=== PATIENT | female | born 1985 | race Caucasian/White ===

== ENCOUNTER 2019-08-09 05:30 | Inpatient (IN) | payer BC ==
[2019-08-09] MEDS ORDERED: Lidocaine 1% (PF) 30 ML VIAL SC PRN (05:42)
[2019-08-09] MEDS ORDERED: Misoprostol 200 MCG TAB PR PRN (05:42)
[2019-08-09] MEDS ORDERED: NS / Oxytocin 40 units/1000ml 1,000 ML IV PRN (05:42)
[2019-08-09] MEDS ORDERED: HYDROcodone/Acetaminophen 5/325 mg Tablet PO PRN ×2 (05:42)
[2019-08-09] MEDS ORDERED: Promethazine HCl 25 MG/ML VIAL IM PRN ×2 (05:42→14:30)
[2019-08-09] MEDS ORDERED: Ondansetron PF 4 MG/2 ML Vial IVP PRN ×3 (05:42→18:39)
[2019-08-09] MEDS ORDERED: NS w/ Oxytocin 10 units 500 ML IV SCH ×2 (05:42)
[2019-08-09] MEDS ORDERED: Diphenoxylate HCl/Atropine Tablet PO PRN ×2 (05:42)
[2019-08-09] MEDS ORDERED: Acetaminophen 500 MG TAB PO PRN (05:42)
[2019-08-09] MEDS ORDERED: Butorphanol Tartrate 1 MG/ML VIAL SLOW IVP PRN (05:42)
[2019-08-09] MEDS ORDERED: Ibuprofen 800 MG TAB PO PRN (05:42)
[2019-08-09] MEDS ORDERED: Docusate 100 MG CAP PO PRN (05:42)
[2019-08-09] MEDS ORDERED: hydrALAZINE 20 MG/ML VIAL SLOW IVP PRN ×2 (05:42→18:39)
[2019-08-09] MEDS: Lactated Ringer's 1,000 ML IV SCH ×2 (06:17→10:38)
[2019-08-09 06:38] LABS: Mean Corpuscular HGB CONC 34.1 g/dL (32.0-36.0); Mean Corpuscular Hemoglobin 29.8 pg (27.0-31.0); Mean Corpuscular Volume 87.4 fL (78.0-98.0); Mean Platelet Volume 8.8 fL (7.4-10.4); Platelet Count 318 thou/uL (130-400); RBC Distribution Width 12.4 % (11.5-14.5); Red Blood Cell (RBC) Count 4.03 mill/uL (4.20-5.40); White Blood Cell (WBC) Count 7.3 thou/uL (4.8-10.8)
[2019-08-09 07:10] VITALS: BMI 34.4
[2019-08-09 07:17] LABS: HBSAg Index 0.17 S/CO (0-0.99); Hep B Surf Ag Non-Reactive S/CO (NonReactive); Syphilis Antibody Nonreactive (Nonreactive); Syphilis Antibody Index 0.04 S/CO (<1.00 Non-Reactive)
[2019-08-09] MEDS ORDERED: Bupivacaine/Epinephrine 0.25% 30 ML VIAL ONE (09:06)
[2019-08-09] MEDS ORDERED: Fentanyl 4 mcg/Bup 0.1% Cadd 100 ML ONE (12:59)
[2019-08-09] MEDS ORDERED: Communication Order-Pharmacy FS SCH (14:30)
[2019-08-09] MEDS ORDERED: Acetaminophen 325 MG TAB PO PRN (14:30)
[2019-08-09] MEDS ORDERED: Lactated Ringer's 500 ML IV PRN (14:30)
[2019-08-09] MEDS ORDERED: Naloxone HCl 0.4 mg/ml Vial IVP PRN ×2 (14:30)
[2019-08-09] MEDS ORDERED: diphenhydrAMINE 50 MG/ML VIAL IVP PRN (14:30)
[2019-08-09] MEDS ORDERED: EPHEDRINE 25 MG/5 ML SYRINGE SLOW IVP PRN (14:30)
[2019-08-09] MEDS ORDERED: Fentanyl 4 mcg/Bupivacaine 0.1% Cassette 100 ML EPIDURAL SCH (14:30)
[2019-08-09] MEDS ORDERED: Fentanyl 100 MCG/2 ML VIAL ONE (16:33)
[2019-08-09] MEDS ORDERED: Acetaminophen/Codeine 30-300mg Tablet PO PRN ×2 (18:39)
[2019-08-09] MEDS ORDERED: Benzocaine-Menthol 82.5 ML CAN TOP PRN (18:39)
[2019-08-09] MEDS ORDERED: diphenhydrAMINE 25 MG CAP PO PRN (18:39)
[2019-08-09] MEDS ORDERED: Lanolin Ointment 7 GM TUBE TOP PRN (18:39)
[2019-08-09] MEDS ORDERED: Milk Of Magnesia 30 ML UDCUP PO PRN (18:39)
[2019-08-09] MEDS ORDERED: Misoprostol 200 MCG TAB VAG PRN (18:39)
[2019-08-09] MEDS ORDERED: Adacel (T-DAP) 0.5 ML SYRINGE IM ONE (18:39)
[2019-08-09] MEDS ORDERED: Preparation H Ointment 28 GM TUBE PR PRN (18:39)
[2019-08-09] MEDS ORDERED: Bisacodyl 10 MG SUPP PR PRN (18:39)
[2019-08-09] MEDS ORDERED: Zolpidem Tartrate 5 MG TAB PO PRN (18:39)
[2019-08-09] MEDS ORDERED: NS / Oxytocin 40 units/1000ml 1,000 ML IV SCH (18:45)
[2019-08-09] MEDS: Docusate Calcium (SURFAK) 240 MG CAP PO SCH (21:55)
[2019-08-09] MEDS: Ibuprofen 800 MG TAB PO SCH (21:55)
[2019-08-10] MEDS: Ibuprofen 800 MG TAB PO SCH ×2 (05:02→15:04)
[2019-08-10 05:31] LABS: Hemoglobin 11.5 g/dL (12.0-16.0); Mean Corpuscular HGB CONC 33.2 g/dL (32.0-36.0); Mean Corpuscular Hemoglobin 29.6 pg (27.0-31.0); Mean Platelet Volume 8.6 fL (7.4-10.4); Platelet Count 262 thou/uL (130-400); RBC Distribution Width 12.5 % (11.5-14.5); Red Blood Cell (RBC) Count 3.88 mill/uL (4.20-5.40); White Blood Cell (WBC) Count 10.7 thou/uL (4.8-10.8)
[2019-08-10] MEDS: Ferrous Sulfate 325 MG TAB PO SCH ×2 (08:26→18:03)
[2019-08-10] MEDS ORDERED: Prenatal Vitamin 1 TAB PO SCH (09:00)
[2019-08-10] MEDS: Docusate Calcium (SURFAK) 240 MG CAP PO SCH (09:35)
[2019-08-10 11:20] VITALS: BP 133/82; TEMP 98.7
== END 2019-08-10 20:05 | disposition home or self-care (01) | DRG 807 ==
LOC: L&D 05:36 → 3SW 21:07
PROVIDERS: ADMIT Obstetrics & Gynecology; ATTEND Obstetrics & Gynecology
PROC: 10E0XZZ Delivery of Products of Conception, External Approach (ICD-10-PCS; principal; 2019-08-09)
PROC: 10907ZC Drainage of Amniotic Fluid, Therapeutic from Products of Conception, Via Natural or Artificial Opening (ICD-10-PCS; 2019-08-09)
PROC: 3E033VJ Introduction of Other Hormone into Peripheral Vein, Percutaneous Approach (ICD-10-PCS; 2019-08-09)
DX: O48.0 Post-term pregnancy (principal); Z37.0 Single live birth; Z3A.40 40 weeks gestation of pregnancy; O13.4 Gestational [pregnancy-induced] hypertension without significant proteinuria, complicating childbirth; O77.0 Labor and delivery complicated by meconium in amniotic fluid; O76 Abnormality in fetal heart rate and rhythm complicating labor and delivery
CPT/HCPCS: 36415; 51702; 85027; 86780; 86850; 86900; 86901; 87340; J0360; J2405; J2590; J3010

== ENCOUNTER 2021-06-23 11:43 | Emergency (ER) | payer OTHER, BC | END 2021-06-23 13:31 | disposition home or self-care (01) | LOC: ERS 11:43 | DX: S32.011A Stable burst fracture of first lumbar vertebra, initial encounter for closed fracture (principal); S32.021A Stable burst fracture of second lumbar vertebra, initial encounter for closed fracture; F17.210 Nicotine dependence, cigarettes, uncomplicated; V48.5XXA Car driver injured in noncollision transport accident in traffic accident, initial encounter; Y92.410 Unspecified street and highway as the place of occurrence of the external cause; Z79.899 Other long term (current) drug therapy | CPT/HCPCS: 99283 ==